=== PATIENT | female | born 1985 | race Caucasian/White ===

== ENCOUNTER 2022-02-22 12:06 | Inpatient (IN) | payer OTHER ==
[2022-02-22 12:27] VITALS: BMI 41.5
[2022-02-22] MEDS ORDERED: LOPERAMIDE HCL 2 MG CAPSULE PO PRN (12:45)
[2022-02-22] MEDS ORDERED: MAGNESIUM HYDROX 2400MG/30ML ORAL SUSPENSION 30 ML CUP PO PRN (12:45)
[2022-02-22] MEDS ORDERED: ONDANSETRON *ODT* 4 MG TABLET SL PRN (12:45)
[2022-02-22] MEDS ORDERED: IBUPROFEN 400 MG TABLET (FP) PO PRN (12:45)
[2022-02-22] MEDS ORDERED: MAGNESIUM CITRATE 300 ML BOTTLE PO PRN (12:45)
[2022-02-22] MEDS ORDERED: NICOTINE 10 MG CARTRIDGE (INHALER) IH PRN (12:45)
[2022-02-22] MEDS ORDERED: BISMUTH SUBSALICYLATE 262 MG/15 ML BTL PO PRN (12:45)
[2022-02-22] MEDS ORDERED: IBUPROFEN 600 MG TABLET (FP) PO PRN (12:45)
[2022-02-22] MEDS ORDERED: MAG HYDROX/AL HYDROX/SIMETH 30 ML UNIT-DOSE CUP PO PRN (12:45)
[2022-02-22] MEDS ORDERED: BENZOCAINE/MENTHOL (CHLORASEPTIC ) LOZENGE MM PRN (12:45)
[2022-02-22] MEDS ORDERED: ACETAMINOPHEN 325 MG TABLET (FP) PO PRN ×2 (12:45)
[2022-02-22] MEDS ORDERED: DICYCLOMINE HCL 10 MG CAPSULE PO PRN (12:45)
[2022-02-22] MEDS ORDERED: NALOXONE HCL (KLOXXADO) 8 MG SPRAY NS PRN (12:45)
[2022-02-22 15:01] LABS: HEMATOCRIT 36.7 % (32.4-45.2); HEMOGLOBIN 12.4 GM/dL (10.7-15.3); MCH 30.2 pg (25.7-33.7); MCHC 33.9 g/dl (32.0-36.0); MEAN PLT VOLUME 7.5 fl (7.5-11.1); PLATELET COUNT 267 10^3/uL (134-434); RBC 4.12 M/mm3 (3.60-5.2); RDW 14.7 % (11.6-15.6); WHITE BLOOD COUNT 5.6 K/mm3 (4.0-10.0)
[2022-02-22 15:13] LABS: ALBUMIN 3.5 g/dl (3.4-5.0); BLOOD UREA NITROGEN 9.7 mg/dL (7-18); CALCIUM 9.3 mg/dL (8.5-10.1)
[2022-02-22 15:18] LABS: BILIRUBIN,TOTAL 0.2 mg/dL (0.2-1); TOT PROT 7.5 g/dl (6.4-8.2)
[2022-02-22] MEDS: hydrOXYzine PAMOATE 25 MG CAPSULE (FP) PO SCH ×3 (18:00→22:30)
[2022-02-22] MEDS: PRENATAL VITAMINS W/ FOLIC ACID TABLET (FP) PO SCH (18:00)
[2022-02-22] MEDS: NICOTINE 14 MG/24 HOURS TOPICAL PATCH TD SCH (21:41)
[2022-02-22] MEDS: MELATONIN 5 MG TABLETS PO SCH (22:30)
[2022-02-22] MEDS: METHOCARBAMOL 500 MG TABLET PO PRN (22:30)
[2022-02-22] MEDS: THIAMINE HCL 100 MG TABLET (FP) PO SCH (22:30)
[2022-02-23] MEDS: hydrOXYzine PAMOATE 25 MG CAPSULE (FP) PO SCH ×5 (05:54→22:07)
[2022-02-23] MEDS ORDERED: diazePAM 5 MG TABLET PO PRN (08:35)
[2022-02-23] MEDS ORDERED: methaDONE 80 MG, methaDONE 20 MG PO ONE (08:45)
[2022-02-23] MEDS ORDERED: TRIMETHOBENZAMIDE HCL 200MG/2ML INJ IM ONE (09:00)
[2022-02-23] MEDS ORDERED: methaDONE HCL 10 MG TABLET ONE (09:43)
[2022-02-23] MEDS ORDERED: methaDONE HCL 40 MG DISPERSABLE TABLET ONE (09:43)
[2022-02-23] MEDS ORDERED: methaDONE HCL 10 MG TABLET PO ONE (10:00)
[2022-02-23] MEDS: METHOCARBAMOL 500 MG TABLET PO PRN ×2 (10:24→17:59)
[2022-02-23] MEDS: CITALOPRAM HYDROBROMIDE 20 MG TABLET PO SCH (10:24)
[2022-02-23] MEDS: diazePAM 5 MG TABLET PO SCH ×3 (10:24→22:07)
[2022-02-23] MEDS: NICOTINE 14 MG/24 HOURS TOPICAL PATCH TD SCH (10:26)
[2022-02-23] MEDS: PRENATAL VITAMINS W/ FOLIC ACID TABLET (FP) PO SCH (10:26)
[2022-02-23] MEDS: GABAPENTIN 100 MG CAPSULE PO SCH ×2 (13:02→22:07)
[2022-02-23] MEDS: MELATONIN 5 MG TABLETS PO SCH (22:07)
[2022-02-23] MEDS: THIAMINE HCL 100 MG TABLET (FP) PO SCH (22:07)
[2022-02-24] MEDS ORDERED: methaDONE HCL 10 MG TABLET ONE (04:27)
[2022-02-24] MEDS ORDERED: methaDONE HCL 40 MG DISPERSABLE TABLET ONE (04:27)
[2022-02-24] MEDS: methaDONE 80 MG, methaDONE 20 MG PO SCH (05:56)
[2022-02-24] MEDS: GABAPENTIN 100 MG CAPSULE PO SCH ×3 (05:58→21:59)
[2022-02-24] MEDS: diazePAM 5 MG TABLET PO SCH ×3 (05:59→22:00)
[2022-02-24] MEDS: hydrOXYzine PAMOATE 25 MG CAPSULE (FP) PO SCH ×5 (05:59→21:59)
[2022-02-24] MEDS ORDERED: methaDONE HCL 40 MG DISPERSABLE TABLET PO SCH (06:00)
[2022-02-24] MEDS: NICOTINE 14 MG/24 HOURS TOPICAL PATCH TD SCH (09:45)
[2022-02-24] MEDS: METHOCARBAMOL 500 MG TABLET PO PRN ×2 (09:45→17:53)
[2022-02-24] MEDS: CITALOPRAM HYDROBROMIDE 20 MG TABLET PO SCH (09:45)
[2022-02-24] MEDS: PRENATAL VITAMINS W/ FOLIC ACID TABLET (FP) PO SCH (09:45)
[2022-02-24] MEDS: THIAMINE HCL 100 MG TABLET (FP) PO SCH (21:59)
[2022-02-24] MEDS: MELATONIN 5 MG TABLETS PO SCH (22:00)
[2022-02-25] MEDS ORDERED: methaDONE HCL 40 MG DISPERSABLE TABLET ONE (04:29)
[2022-02-25] MEDS ORDERED: methaDONE HCL 10 MG TABLET ONE (04:29)
[2022-02-25] MEDS: methaDONE 80 MG, methaDONE 20 MG PO SCH (05:35)
[2022-02-25] MEDS: GABAPENTIN 100 MG CAPSULE PO SCH ×3 (05:36→22:50)
[2022-02-25] MEDS: diazePAM 5 MG TABLET PO SCH ×2 (05:36→17:48)
[2022-02-25] MEDS: hydrOXYzine PAMOATE 25 MG CAPSULE (FP) PO SCH ×5 (05:38→22:51)
[2022-02-25] MEDS: CITALOPRAM HYDROBROMIDE 20 MG TABLET PO SCH (10:04)
[2022-02-25] MEDS: NICOTINE 14 MG/24 HOURS TOPICAL PATCH TD SCH (10:04)
[2022-02-25] MEDS: PRENATAL VITAMINS W/ FOLIC ACID TABLET (FP) PO SCH (10:04)
[2022-02-25] MEDS: METHOCARBAMOL 500 MG TABLET PO PRN (17:49)
[2022-02-25] MEDS: MELATONIN 5 MG TABLETS PO SCH (22:50)
[2022-02-25] MEDS: THIAMINE HCL 100 MG TABLET (FP) PO SCH (22:50)
[2022-02-26] MEDS ORDERED: methaDONE HCL 10 MG TABLET ONE (04:38)
[2022-02-26] MEDS ORDERED: methaDONE HCL 40 MG DISPERSABLE TABLET ONE (04:38)
[2022-02-26] MEDS: methaDONE 80 MG, methaDONE 20 MG PO SCH (05:40)
[2022-02-26] MEDS: hydrOXYzine PAMOATE 25 MG CAPSULE (FP) PO SCH (05:40)
[2022-02-26] MEDS: GABAPENTIN 100 MG CAPSULE PO SCH (05:40)
[2022-02-26] MEDS ORDERED: diazePAM 5 MG TABLET PO ONE (06:00)
[2022-02-26 09:11] VITALS: BP 111/86; PULSE 97; TEMP 97.4
== END 2022-02-26 09:29 | disposition home or self-care (01) | DRG 773 ==
LOC: YASAS 12:06 → Y6N 12:55
PROVIDERS: ADMIT Allergy & Immunology; ATTEND Surgery
PROC: HZ2ZZZZ Detoxification Services for Substance Abuse Treatment (ICD-10-PCS; principal; 2022-02-22)
DX: F10.230 Alcohol dependence with withdrawal, uncomplicated (principal); F13.230 Sedative, hypnotic or anxiolytic dependence with withdrawal, uncomplicated; F11.20 Opioid dependence, uncomplicated; F17.210 Nicotine dependence, cigarettes, uncomplicated; F19.280 Other psychoactive substance dependence with psychoactive substance-induced anxiety disorder; F19.282 Other psychoactive substance dependence with psychoactive substance-induced sleep disorder; F41.8 Other specified anxiety disorders; F32.A Depression, unspecified; F90.9 Attention-deficit hyperactivity disorder, unspecified type; E66.01 Morbid (severe) obesity due to excess calories; Z68.41 Body mass index [BMI] 40.0-44.9, adult; Z62.810 Personal history of physical and sexual abuse in childhood; Z91.410 Personal history of adult physical and sexual abuse; Z28.310 Unvaccinated for COVID-19
CPT/HCPCS: 36415; 80053; 81025; 82962; 85027; 86780; 93005; 93010; C9803-CS; U0003; U0005

== ENCOUNTER 2022-12-26 10:55 | Inpatient (IN) | payer OTHER ==
[2022-12-26 11:23] VITALS: BMI 39.9
[2022-12-26] MEDS ORDERED: IBUPROFEN 400 MG TABLET (FP) PO PRN (13:19)
[2022-12-26] MEDS ORDERED: BENZOCAINE/MENTHOL (CHLORASEPTIC ) LOZENGE MM PRN (13:19)
[2022-12-26] MEDS ORDERED: MAG HYDROX/AL HYDROX/SIMETH 30 ML UNIT-DOSE CUP PO PRN (13:19)
[2022-12-26] MEDS ORDERED: MAGNESIUM HYDROX 2400MG/30ML ORAL SUSPENSION 30 ML CUP PO PRN (13:19)
[2022-12-26] MEDS ORDERED: DICYCLOMINE HCL 10 MG CAPSULE PO PRN (13:19)
[2022-12-26] MEDS ORDERED: ONDANSETRON *ODT* 4 MG TABLET SL PRN (13:19)
[2022-12-26] MEDS ORDERED: hydrOXYzine PAMOATE 25 MG CAPSULE (FP) PO PRN (13:19)
[2022-12-26] MEDS ORDERED: ACETAMINOPHEN 325 MG TABLET (FP) PO PRN (13:19)
[2022-12-26] MEDS ORDERED: BISMUTH SUBSALICYLATE 524 MG/30 ML PO PRN (13:19)
[2022-12-26] MEDS ORDERED: guaiFENesin 600 MG TABLET.ER (FP) PO PRN (13:19)
[2022-12-26] MEDS ORDERED: POLYETHYLENE GLYCOL (HEALTHYLAX) 3350 17 GM PACKET PO PRN (13:19)
[2022-12-26] MEDS ORDERED: LOPERAMIDE HCL 2 MG CAPSULE PO PRN (13:19)
[2022-12-26] MEDS ORDERED: IBUPROFEN 600 MG TABLET (FP) PO PRN (13:19)
[2022-12-26] MEDS ORDERED: METHOCARBAMOL 500 MG TABLET PO PRN (13:19)
[2022-12-26] MEDS ORDERED: BENZONATATE 200 MG CAPSULE PO PRN (13:19)
[2022-12-26] MEDS ORDERED: NALOXONE HCL (KLOXXADO) 8 MG SPRAY NS PRN (13:19)
[2022-12-26] MEDS ORDERED: NALOXONE HCL 0.4 MG/ML VIAL IM PRN (13:19)
[2022-12-26] MEDS: diazePAM 5 MG TABLET PO SCH ×2 (17:24→22:09)
[2022-12-26] MEDS: THIAMINE HCL 100 MG TABLET (FP) PO SCH (22:08)
[2022-12-26] MEDS: MELATONIN 5 MG TABLETS PO SCH (22:08)
[2022-12-27] MEDS: diazePAM 5 MG TABLET PO SCH ×4 (05:42→22:11)
[2022-12-27] MEDS ORDERED: methaDONE HCL 10 MG TABLET PO SCH (08:30)
[2022-12-27] MEDS ORDERED: methaDONE 40 MG, methaDONE 30 MG PO ONE (08:45)
[2022-12-27] MEDS: PRENATAL VITAMINS W/ FOLIC ACID TABLET (FP) PO SCH (10:15)
[2022-12-27] MEDS: CITALOPRAM HYDROBROMIDE 20 MG TABLET PO SCH (10:15)
[2022-12-27 11:10] LABS: CALCIUM 10.1 mg/dL (8.5-10.1)
[2022-12-27 11:11] LABS: ALBUMIN 3.5 g/dl (3.4-5.0); BLOOD UREA NITROGEN 11.8 mg/dL (7-18)
[2022-12-27 11:15] LABS: BILIRUBIN,TOTAL 0.4 mg/dL (0.2-1); TOT PROT 7.6 g/dl (6.4-8.2)
[2022-12-27 11:24] LABS: HEMOGLOBIN 13.4 GM/dL (10.7-15.3); MCH 30.2 pg (25.7-33.7); MCHC 34.3 g/dl (32.0-36.0); MEAN CELL VOLUME 88.2 fl (80-96); MEAN PLT VOLUME 8.1 fl (7.5-11.1); PLATELET COUNT 295 10^3/uL (134-434); RBC 4.42 M/mm3 (3.60-5.2); WHITE BLOOD COUNT 6.2 K/mm3 (4.0-10.0)
[2022-12-27 12:12] LABS: HIV INTERPRETATION NEGATIVE (NEGATIVE)
[2022-12-27] MEDS: GABAPENTIN 100 MG CAPSULE PO SCH ×2 (13:53→22:11)
[2022-12-27] MEDS: MELATONIN 5 MG TABLETS PO SCH (22:10)
[2022-12-27] MEDS: THIAMINE HCL 100 MG TABLET (FP) PO SCH (22:10)
[2022-12-27] MEDS: risperiDONE 3 MG TABLET PO SCH (22:10)
[2022-12-28] MEDS: methaDONE 40 MG, methaDONE 30 MG PO SCH (05:25)
[2022-12-28] MEDS: diazePAM 5 MG TABLET PO SCH ×3 (05:26→22:14)
[2022-12-28] MEDS: GABAPENTIN 100 MG CAPSULE PO SCH ×3 (05:26→22:13)
[2022-12-28] MEDS: risperiDONE 2 MG TABLET PO SCH (06:03)
[2022-12-28] MEDS: PRENATAL VITAMINS W/ FOLIC ACID TABLET (FP) PO SCH (10:14)
[2022-12-28] MEDS: diazePAM 5 MG TABLET PO PRN ×2 (10:17→18:14)
[2022-12-28] MEDS: CITALOPRAM HYDROBROMIDE 20 MG TABLET PO SCH (10:17)
[2022-12-28] MEDS: THIAMINE HCL 100 MG TABLET (FP) PO SCH (22:12)
[2022-12-28] MEDS: MELATONIN 5 MG TABLETS PO SCH (22:12)
[2022-12-28] MEDS: risperiDONE 3 MG TABLET PO SCH (22:13)
[2022-12-29] MEDS: methaDONE 40 MG, methaDONE 30 MG PO SCH (05:23)
[2022-12-29] MEDS: diazePAM 5 MG TABLET PO SCH ×2 (05:23→18:28)
[2022-12-29] MEDS: GABAPENTIN 100 MG CAPSULE PO SCH ×2 (05:23→13:17)
[2022-12-29] MEDS: risperiDONE 2 MG TABLET PO SCH (06:10)
[2022-12-29 09:46] VITALS: RESP 18
[2022-12-29] MEDS: PRENATAL VITAMINS W/ FOLIC ACID TABLET (FP) PO SCH (10:36)
[2022-12-29] MEDS: CITALOPRAM HYDROBROMIDE 20 MG TABLET PO SCH (10:37)
[2022-12-29] MEDS: diazePAM 5 MG TABLET PO PRN (10:39)
[2022-12-29 17:24] VITALS: BP 137/71; PULSE 92; TEMP 97.1
[2022-12-30] MEDS ORDERED: diazePAM 5 MG TABLET PO ONE (06:00)
== END 2022-12-29 18:00 | disposition home or self-care (01) | DRG 773 ==
LOC: YASAS 10:55 → Y6N 13:41
PROVIDERS: ADMIT Allergy & Immunology; ATTEND Surgery
PROC: HZ2ZZZZ Detoxification Services for Substance Abuse Treatment (ICD-10-PCS; principal; 2022-12-26)
DX: F10.230 Alcohol dependence with withdrawal, uncomplicated (principal); F13.230 Sedative, hypnotic or anxiolytic dependence with withdrawal, uncomplicated; F11.20 Opioid dependence, uncomplicated; F17.210 Nicotine dependence, cigarettes, uncomplicated; F19.282 Other psychoactive substance dependence with psychoactive substance-induced sleep disorder; F33.3 Major depressive disorder, recurrent, severe with psychotic symptoms; F90.2 Attention-deficit hyperactivity disorder, combined type; E66.9 Obesity, unspecified; Z68.39 Body mass index [BMI] 39.0-39.9, adult; Z62.810 Personal history of physical and sexual abuse in childhood; Z91.410 Personal history of adult physical and sexual abuse
CPT/HCPCS: 36415; 80053; 81025; 85027; 86780; 87389; 87811; C9803-CS; Q0162; U0003; U0005

== ENCOUNTER 2025-02-21 21:16 | Inpatient (IN) | payer OTHER ==
[2025-02-21 21:34] VITALS: RESP 16; BMI 39.4
[2025-02-21] MEDS ORDERED: BENZONATATE 200 MG CAPSULE PO PRN (23:02)
[2025-02-21] MEDS ORDERED: ACETAMINOPHEN 325 MG TABLET (FP) PO PRN (23:02)
[2025-02-21] MEDS ORDERED: POLYETHYLENE GLYCOL (HEALTHYLAX) 3350 17 GM PACKET PO PRN (23:02)
[2025-02-21] MEDS ORDERED: NALOXONE (NARCAN) HCL 4 MG/0.1 ML SPRAY NS PRN (23:02)
[2025-02-21] MEDS ORDERED: DICYCLOMINE HCL 10 MG CAPSULE PO PRN (23:02)
[2025-02-21] MEDS ORDERED: MAGNESIUM HYDROX 2400MG/30ML ORAL SUSPENSION 30 ML CUP PO PRN (23:02)
[2025-02-21] MEDS ORDERED: BENZOCAINE/MENTHOL (CHLORASEPTIC ) LOZENGE MM PRN (23:02)
[2025-02-21] MEDS ORDERED: MAG HYDROX/AL HYDROX/SIMETH 30 ML UNIT-DOSE CUP PO PRN (23:02)
[2025-02-21] MEDS ORDERED: NICOTINE POLACRILEX 2 MG GUM BUC PRN (23:02)
[2025-02-21] MEDS ORDERED: guaiFENesin 600 MG TABLET.ER (FP) PO PRN (23:02)
[2025-02-21] MEDS ORDERED: IBUPROFEN 600 MG TABLET (FP) PO PRN (23:02)
[2025-02-21] MEDS ORDERED: IBUPROFEN 400 MG TABLET (FP) PO PRN (23:02)
[2025-02-21] MEDS ORDERED: LOPERAMIDE HCL 2 MG CAPSULE PO PRN (23:02)
[2025-02-21] MEDS ORDERED: BISMUTH SUBSALICYLATE 524 MG/30 ML PO PRN (23:02)
[2025-02-21] MEDS ORDERED: METHOCARBAMOL 500 MG TABLET PO PRN (23:02)
[2025-02-21] MEDS ORDERED: diazePAM 5 MG TABLET PO PRN (23:05)
[2025-02-21] MEDS ORDERED: diazePAM 5 MG TABLET ONE (23:37)
[2025-02-21] MEDS ORDERED: levETIRAcetam 500 MG TABLET (FP) PO ONE (23:37)
[2025-02-21] MEDS: levETIRAcetam 500 MG TABLET (FP) PO SCH (23:40)
[2025-02-21] MEDS: diazePAM 5 MG TABLET PO SCH (23:40)
[2025-02-22] MEDS: ONDANSETRON *ODT* 4 MG TABLET SL PRN (01:50)
[2025-02-22] MEDS: hydrOXYzine PAMOATE 25 MG CAPSULE (FP) PO PRN (01:52)
[2025-02-22] MEDS ORDERED: methaDONE HCL 10 MG TABLET PO SCH (08:15)
[2025-02-22] MEDS: methaDONE 40 MG, methaDONE 30 MG PO SCH (08:40)
[2025-02-22 09:16] VITALS: BP 156/90; PULSE 70; TEMP 97.6
[2025-02-22] MEDS: PRENATAL VITAMINS W/ FOLIC ACID TABLET (FP) PO SCH (09:39)
[2025-02-22] MEDS: NICOTINE 14 MG/24 HOURS TOPICAL PATCH TD SCH (09:39)
[2025-02-22] MEDS: CITALOPRAM HYDROBROMIDE 20 MG TABLET PO SCH (11:27)
[2025-02-22] MEDS ORDERED: GABAPENTIN 100 MG CAPSULE PO SCH (14:00)
[2025-02-22] MEDS ORDERED: cloNIDine HCL 0.1 MG TABLET PO SCH (14:00)
[2025-02-22] MEDS ORDERED: traZODone HCL 50 MG TABLET (FP) PO SCH (22:00)
[2025-02-22] MEDS ORDERED: risperiDONE 3 MG TABLET PO SCH (22:00)
[2025-02-22] MEDS ORDERED: THIAMINE 100 MG TABLET PO SCH (22:00)
[2025-02-22] MEDS ORDERED: MELATONIN 5 MG TABLETS PO SCH (22:00)
[2025-02-23] MEDS ORDERED: diazePAM 5 MG TABLET PO SCH (06:00)
[2025-02-23] MEDS ORDERED: risperiDONE 2 MG TABLET PO SCH (07:00)
[2025-02-24] MEDS ORDERED: cloNIDine HCL 0.1 MG TABLET PO PRN
[2025-02-24] MEDS ORDERED: diazePAM 5 MG TABLET PO SCH (06:00)
[2025-02-24] MEDS ORDERED: methaDONE HCL 10 MG TABLET PO ONE (10:00)
[2025-02-25] MEDS ORDERED: diazePAM 5 MG TABLET PO ONE (06:00)
[2025-02-25] MEDS ORDERED: methaDONE HCL 10 MG TABLET PO ONE (10:00)
[2025-02-26] MEDS ORDERED: methaDONE HCL 10 MG TABLET PO ONE (10:00)
[2025-02-27] MEDS ORDERED: methaDONE HCL 10 MG TABLET PO ONE (10:00)
== END 2025-02-22 12:04 | disposition home or self-care (01) | DRG 773 ==
LOC: YASAS 21:16 → Y6N 23:10
PROVIDERS: ADMIT Allergy & Immunology; ATTEND Family Medicine Addiction Medicine
PROC: HZ2ZZZZ Detoxification Services for Substance Abuse Treatment (ICD-10-PCS; principal; 2025-02-21)
DX: F10.230 Alcohol dependence with withdrawal, uncomplicated (principal); F13.20 Sedative, hypnotic or anxiolytic dependence, uncomplicated; F11.20 Opioid dependence, uncomplicated; F17.210 Nicotine dependence, cigarettes, uncomplicated; F33.3 Major depressive disorder, recurrent, severe with psychotic symptoms; F41.1 Generalized anxiety disorder; F90.9 Attention-deficit hyperactivity disorder, unspecified type; F19.282 Other psychoactive substance dependence with psychoactive substance-induced sleep disorder
CPT/HCPCS: 93005; 93010; Q0162